=== PATIENT | female | born 1965 ===

== ENCOUNTER 2016-06-27 00:53 | Emergency (ER) | payer SELFPAY ==
[2016-06-27 01:13] VITALS: PULSE 81
[2016-06-27] MEDS ORDERED: Fluconazole 150 MG TAB PO ONE (02:26)
--- NOTE | 2016-06-27 02:50 | ED PDOC ---
HPI: Female Pain Time Seen by Provider: 06/27/16 01:21 Chief Complaint (Nursing): Female Genitourinary Chief Complaint (Provider): Female Genitourinary History Per: Patient History/Exam Limitations: no limitations Onset/Duration Of Symptoms: Days (x8) Additional Complaint(s): 1:21 Ria Kurtz, 51 year old female presents to the ED on , for vaginal discharge occurring for 8 days prior to arrival. The patient has a past medical history of Gastritis and was recently started on Biaxin and Amoxicillin for treatment for H. Pylori. Within 3 days of starting antibiotics, the patient reports developing severe, white vaginal discharge with extreme discomfort and itchiness. She denies any fever, nausea, vomiting, diarrhea, or back pain. The patient has also tried Monistat with no improvement. Past Medical History Reviewed: Historical Data, Nursing Documentation, Vital Signs Vital Signs: Last Vital Signs Temp 98.4 F 06/27/16 01:10 Pulse 81 06/27/16 01:10 Resp 18 06/27/16 01:10 BP 184/99 H 06/27/16 01:10 Pulse Ox 100 06/27/16 01:10 - Medical History PMH: Gastritis - Surgical History Surgical History: No Surg Hx - Family History Family History: States: Unknown Family Hx - Home Medications Home Medications: Ambulatory Orders Medication Instructions Recorded Fluconazole [Diflucan] 300 mg PO ONCE #3 tab 06/27/16 - Allergies Allergies/Adverse Reactions: Allergies Allergy/AdvReac Type Severity Reaction Status Date / Time No Known Allergies Allergy Verified 06/27/16 01:10 Review of Systems Constitutional: Negative for: Fever Gastrointestinal: Negative for: Nausea, Vomiting, Diarrhea Genitourinary Female: Positive for: Vaginal Discharge (white with extreme discomfort ) Musculoskeletal: Negative for: Back Pain Physical Exam - Reviewed Nursing Documentation Reviewed: Yes Vital Signs Reviewed: Yes - Physical Exam Appears: Positive for: Non-toxic, No Acute Distress Head Exam: Positive for: ATRAUMATIC, NORMOCEPHALIC Skin: Positive for: Normal Color, Warm, Dry Eye Exam: Positive for: Normal appearance ENT: Positive for: Normal ENT Inspection Neck: Positive for: Normal, Painless ROM Cardiovascular/Chest: Positive for: Regular Rate, Rhythm, Chest Non Tender Respiratory: Positive for: Normal Breath Sounds. Negative for: Respiratory Distress Gastrointestinal/Abdominal: Positive for: Normal Exam, Soft. Negative for: Tenderness Pelvic Exam: Positive for: Discharge (on insertion copious white discharge ), Other (Life Care Planner Present: [place]). Negative for: No Cerv. Motion Tender, Tender W/Cervical Motion, Tender Adnexa Back: Positive for: Normal Inspection Extremity: Positive for: Normal ROM. Negative for: Deformity Neurologic/Psych: Positive for: Alert, Oriented (x3) - ECG O2 Sat by Pulse Oximetry: 100 (RA) Pulse Ox Interpretation: Normal Medical Decision Making Medical Decision Makin:21 Initial Impression: 51 year old female with vulvovaginal candidiasis. Initial Plan: * ED Urine (POC) Stat * ED Urine Dipstick (POC) Stat * Diflucan 300 mg PO Once * Reevaluation 2:33 Patient treated with Diflucan 300 mg and repeat in 3 days. Patient will follow up with [facility] and with her [employer] Helper in 5 days. Patient agreed to treatment plan and medication. Scribe Attestation: Documented by Sirisha Vincent, acting as a scribe for Alden Mcgrath MD. Provider Scribe Attestation: All medical record entries made by the Scribe were at my direction and personally dictated by me. I have reviewed the chart and agree that the record accurately reflects my personal performance of the history, physical exam, medical decision making, and the department course for this patient. I have also personally directed, reviewed, and agree with the discharge instructions and disposition. Disposition - Clinical Impression Clinical Impression: Candidal vulvovaginitis - Disposition Disposition Time: 02:33 Condition: STABLE Prescriptions: Fluconazole [Diflucan] 300 mg PO ONCE #3 tab Instructions: Vulvovaginal Candidiasis (ED) Print Language: LATVIAN
[2016-06-27 05:18] VITALS: BP 142/68; RESP 15; TEMP 98.3; O2SAT 99
== END 2016-06-27 03:25 | disposition home or self-care (01) ==
LOC: H.ER 00:53
DX: B37.3 Candidiasis of vulva and vagina (principal)